=== PATIENT | male | born 1960 | race Caucasian/White ===

== ENCOUNTER 2021-10-25 09:17 | Outpatient (CLI) | payer OTHER, SELFPAY ==
--- NOTE | ~2021-10-25 | XR_ITS ---
XR shoulder LT min 2V 10/25/2021 09:34 Indication: Left shoulder pain. Limited range of motion. Procedure: 4 views left shoulder Comparison: No prior studies for comparison. Findings: There is osteoarthritis of the acromioclavicular joint. No fracture, subluxation or disloca tion. No significant soft tissue abnormality. No foreign bodies. Impression: 1: Mild osteoarthritis of the left acromioclavicular joint. Reviewed, dictated and finalized at location A. Impression: 1: Mild osteoarthritis of the left acromioclavicular joint.
== END 2021-10-25 09:18 | disposition home or self-care (01) ==
PROVIDERS: PCP Family Medicine; Visit Provider Family Medicine
DX: M75.42 Impingement syndrome of left shoulder (principal); M19.012 Primary osteoarthritis, left shoulder
CPT/HCPCS: 73030

== ENCOUNTER 2023-04-16 10:34 | Outpatient (CLI) | payer OTHER, SELFPAY ==
--- NOTE | ~2023-04-16 | MR_ITS ---
EXAMINATION: MR brain/brain stem wo con DATE: 04/16/2023 11:29 INDICATION: Vertigo. TECHNIQUE: Magnetic resonance imaging (MRI) of the brain and brainstem was performed without intraven ous contrast. COMPARISON: None. FINDINGS: There are scattered areas of nonspecific increased T2-weighted signal intensity in the cere bral white matter, which is within normal limits for the patient's age. There is no intracranial hemo rrhage, acute infarction, or abnormal intracranial mass lesion. The ventricles are normal in size. Th ere is mucosal thickening in the paranasal sinuses. The orbits are normal. The mastoid air cells are normal. IMPRESSION: 1. Normal aging brain. Reviewed, dictated and finalized at location E. UCTION CLERK IMPRESSION: 1. Normal aging brain.
== END 2023-04-16 10:35 | disposition home or self-care (01) ==
PROVIDERS: PCP Family Medicine; Visit Provider Student in an Organized Health Care Education/Training Program
DX: R42 Dizziness and giddiness (principal)
CPT/HCPCS: 70551

== ENCOUNTER 2023-09-02 07:55 | Outpatient (RCR) | payer OTHER, SELFPAY ==
--- NOTE | 2023-09-02 12:34 | OPREHPOC ---
Outpatient Therapy Plan of Care This is a Multidisciplinary Plan of Care that may contain components documented by all disciplines (PT, OT, and ST.) PT Problem 1 PT Problem #1 Knowledge Deficit PT Goal 1 Goal Kingfisher with home Stewart maneuver Target Visit 2 PT Goal 1 Goal Demonstrate no indication objective of subjective of vertigo with rolling or cervical extension Target Visit 4
--- NOTE | 2023-09-02 12:35 | PTOPEVAL1 ---
Assessment and note entered by Ousmane Puente, PT Evaluation Information Assessment Status Evaluation Diagnosis BPPV Onset 1 Year Subjective Information Reports that he is getting a lot of dizziness when he extends his head or turns his head too rapidly . It is able to settle down if he is stationary. He has not been sleeping very well. He also gets dizzy when rolling over in bed or sitting up to fast. Denies any mental status change. Denies any lightheadedness. Denies any blood pressure issues. Reports that he has some ringing in his ears as well. He plays the drums. Reported Pain Level Pain Score 0: Self Report Assessment PT Clinical Summary Patent presents with mild subjective symptoms to day to the right side. No nystagmus was provoked this session. Educated in home Stewart maneuver in case sporadic symptoms arose. Will follow up next week and as needed to ensure no presence of BPPV is found. Plan of Care Interventions Neuro Re-education PT Services Indicated Yes Treatment Frequency and 1x/week for 4 visits or until resolution of Duration symptoms These treatments will address the objective and functional deficits as defined above. The patient will be advanced safely and appropriately in order for the patient to progress towards his/her prior level of function. Additional exercises will be introduced and as well as a comprehensive home exercise program upon discharge, if needed, ?to ensure carryover of functional gains achieved in the clinic. This treatment plan has been reviewed and agreement upon by the patient.
--- NOTE | 2023-10-17 09:25 | PTOPDC ---
Assessment and note entered by Inna Crane, PT, DPT Evaluation Information Assessment Status Discharge - Pt Not Presen Diagnosis BPPV Onset 1 Year Subjective Information Pt called to cancel appointment on 09/06/23. Called and LVM twice to see if pt needed to reschedule and have not heard back from him. Assessment PT Clinical Summary Pt completed 1 visit of therapy on 09/02/23 and has not completed any follow up visits. He will be discharged at this time. If he needs additional therapy he will need a new order.
== END 2023-10-17 11:25 | disposition home or self-care (01) ==
LOC: ANHGOSHPT 07:55
PROVIDERS: PCP Family Medicine; Visit Provider Otolaryngology
DX: H81.10 Benign paroxysmal vertigo, unspecified ear (principal)
CPT/HCPCS: 95992; 97161

== ENCOUNTER 2023-09-05 07:59 | Outpatient (CLI) | payer OTHER, SELFPAY | END 2023-09-05 08:00 | disposition home or self-care (01) | LOC: ANHAUDASC 08:00 | PROVIDERS: PCP Family Medicine; Visit Provider Otolaryngology | DX: H93.19 Tinnitus, unspecified ear (principal); H90.3 Sensorineural hearing loss, bilateral | CPT/HCPCS: 92557; 92567 ==

== ENCOUNTER 2024-11-30 14:59 | Outpatient (CLI) | payer OTHER, SELFPAY ==
--- NOTE | ~2024-11-30 | MR_ITS ---
EXAMINATION: MR lumbar spine wo con DATE: 11/30/2024 15:23 INDICATION: Lumbar radiculopathy. Low back pain. TECHNIQUE: Magnetic resonance imaging (MRI) of the lumbar spine was performed without intravenous contrast. Sequences included sagittal T2-weighted FSE, sagittal T2-weighted FS FSE, sagittal T1-weighted FSE, and axial T2-weighted FSE. COMPARISON: Lumbar spine MRI 07/11/16 FINDINGS: There is 3 mm retrolisthesis of L2 on L3 and L3 on L4 and 3 mm anterolisthesis of L5 on S1. There are chronic bilateral L5 pars defects. There is a chronic compression fracture of L1 with 2/5 loss of height. There is mildly decreased disc height at L2-L3, moderately decreased disc height at L4-L5, and mildly decreased disc height at L5-S1. The distal spinal cord signal intensity is normal. The conus medullaris is at L1. The following disc levels are specifically discussed: L1-L2: The disc is bulging. There is mild bilateral facet joint osteoarthritis. There is no neural foraminal stenosis. There is mild central canal stenosis. L2-L3: The disc is bulging and has an annular fissure. There is moderate right and mild left facet joint osteoarthritis. There is mild bilateral neural foraminal stenosis. There is mild central canal stenosis. L3-L4: The disc is bulging. There is moderate right and mild left facet joint osteoarthritis. There is mild bilateral neural foraminal stenosis. There is mild central canal stenosis. L4-L5: The disc is bulging and has an annular fissure. There is mild bilateral facet joint osteoarthritis. There is mild bilateral neural foraminal stenosis. There is mild central canal stenosis. L5-S1: The disc is bulging and has an annular fissure. There is moderate bilateral facet joint osteoarthritis. There is mild bilateral neural foraminal stenosis. There is mild central canal stenosis. IMPRESSION: 1. Chronic bilateral L5 pars defects with grade 1 anterolisthesis of L5 on S1. 2. Mild lumbar spondylosis, stable from 07/11/2016. Reviewed, dictated and finalized at location E.
== END 2024-11-30 15:00 | disposition home or self-care (01) ==
LOC: MICIMG 15:00
PROVIDERS: PCP Physician Assistant Medical; Visit Provider Nurse Practitioner Family
DX: M47.26 Other spondylosis with radiculopathy, lumbar region (principal)
CPT/HCPCS: 72148